=== PATIENT | female | born 1950 | race Caucasian/White ===

== ENCOUNTER → 2018-02-23 | Day surgery (SDC) | payer OTHER ==
[2018-02-09 09:44] VITALS: BMI 34.0
[~2018-02-23] VITALS: Ht 149.9 cm; Wt 76.4 kg
[~2018-02-23] MED LIST: ALBU18002 INH; ALBUTEROL HFA INHALER 8.5 GM INH ONE; ATOR-22 PO; ATROPINE SULFATE 0.1 MG/ML 5ML SYR IV PRN; BUPIVACAINE 0.5 % 5 MG/1 ML MPF 30ML VIAL ONE; CEFAZOLIN 2000MG IV PUSH 15 ML IV SCH; CHOL1000 PO; DEXAMETHASONE SOD INJ 4 MG/ML VIAL ONE; EpHEDrine SULFATE INJ 50 MG/ML AMP IV PRN; FENTANYL CITRATE INJ 50 MCG/1 ML 2 ML VIAL ONE; FLUT1AER14 INH; GLC/500 PO; HYDR-5688 PO; HYDR12.55 PO; HYDROCODONE/ACETAMIN 5/325MG TAB PO PRN; LACTATED RINGER'S 1000ML 1,000 ML IV SCH; LIDOCAINE HCL 2% 2 ML VIAL (20MG/ML) ONE; LISI-461 PO; MELO7.5T5 PO; MIDAZOLAM HCL 1 MG/ML 2ML VIAL ONE; MULT-506 PO; MoRPHine SULFATE 4 MG/ML 1 ML CARP\\VIAL IV PRN; ONDANSETRON INJ 2 MG/ML 2 ML VIAL IV PRN; ONDANSETRON INJ 2 MG/ML 2 ML VIAL ONE; PHENYLEPHRINE 100MCG/ML 5ML SYR ONE; PROPOFOL IV EMULSION 10 MG/ML 20 ML VIAL IV ONE
[2018-02-23 09:42] LABS: ALBUMIN 3.5 gm/dl (3.4-5.0); ALKALINE PHOSPHATASE 106 U/L (45-117); ALT/SGPT 18 U/L (12-78); AST/SGOT 14 U/L (15-37); TOTAL PROTEIN 7.1 gm/dl (6.4-8.2)
[2018-02-23 10:12] VITALS: BP 113/65; PULSE 88; TEMP 37.2; O2SAT 93; Ht 149.9 cm; Wt 76.4 kg
--- NOTE | 2018-02-23 10:23 | DIAGNOSTIC IMAGING REPORT ---
LYMPHOSCINTIGRAPHY CLINICAL HISTORY: Right breast cancer. PROCEDURE: Using standard sterile technique, 4 intradermal and one deep injection of 0.499 mCi of Lymphoseek was placed in the right breast. The patient tolerated the procedure well. There were no immediate complications. Imaging was acquired at 15 minutes and a right axillary node was marked for the surgeon. IMPRESSION: 1. Injection of 0.499 mCi of Lymphoseek in the right breast. 2. A right axillary node was marked for the surgeon. Electronically signed by: Walter Bird M.D. 02/23/2018 10:22 AM Dictated Date/Time: 02/23/2018 10:21 AM
[2018-02-23] MEDS: LACTATED RINGER'S 1000ML 1,000 ML IV SCH ×2 (10:28→14:12)
--- NOTE | 2018-02-23 11:53 | History & Physical Bridge Note ---
H&P Re-Evaluation Bridge Note: I have examined the patient, reviewed the History & Physical and in the interval since the performance of the History & Physical I have noted the following changes of clinical significance: Abdominal skin infection cleared, received clearance for surgery from PCP. wire placed, injection complete, films reviewed. No other changes noted
--- NOTE | 2018-02-23 13:39 | [facility] Post Operative Brief Note ---
Immediate Operative Summary Operative Date Feb 23, 2018. Pre-Operative Diagnosis Breast Cancer Right Post-Operative Diagnosis Breast Cancer Right Procedure(s) Performed Right Breast Lumpectomy with Needle Localization and Right Axillary [place] Lymph Node Biopsy Surgeon Entry Level Business Analyst Surgeon(s) KELSY Storey Estimated Blood Loss 12ml Findings Consistent with Post-Op Diagnosis 3 sentinel nodes. X-ray confirmed excision of surgical specimen Specimens A. [place] Lymph Nodes Right (Sent Fresh) B. Right Breast Tissue, Short suture superior, Long suture Lateral, Double Suture deep, (sent Fresh) C.Right Breast Tissue Inferior Medial Margine, Double suture Deep, Long suture lateral, Triple suture Anterior, Short suture superior margine. Drains None Anesthesia Type General Complication(s) none Disposition Accompanied Pt To Recover: no Disposition: Recovery Room / PACU
--- NOTE | 2018-02-23 13:44 | [facility] Operative Report ---
Operative Report Operative Date Feb 23, 2018. Pre-Operative Diagnosis Breast Cancer Right Post-Operative Diagnosis Same Procedure(s) Performed Right breast wire localized lumpectomy and right axillary sentinel lymph node biopsy Surgeon Bran Mixer Surgeon(s) KELSY Storey Estimated Blood Loss 12ml Findings 3 sentinel nodes identified and excised, largest count 210 ex vivo, axillary silent. Lumpectomy performed, mammography confirmed excision of specimen. Additional inferior medial margin taken. Specimens A. [place] Lymph Nodes Right (Sent Fresh) B. Right Breast Tissue, Short suture superior, Long suture Lateral, Double Suture deep, (sent Fresh) C.Right Breast Tissue Inferior Medial Margine, Double suture Deep, Long suture lateral, Triple suture Anterior, Short suture superior margine. Drains None Anesthesia GETA Complication(s) None Disposition Recovery Room / PACU Indications 67-year-old female with newly diagnosed right breast carcinoma, plan for right breast wire localized lumpectomy with right axillary sentinel lymph node biopsy. The risks of the procedure were discussed, all questions were answered , and the patient agreed to proceed with surgery as planned. Description of Procedure The patient had a localization wire placed in radiology prior to surgery. The films were reviewed for incisional planning. Patient had lymphoscintigraphy performed prior to the procedure and the axilla was examined with a gamma probe and confirmed uptake into the axilla. The patient was properly identified, consented, and taken to the operating room where she was placed in the supine position. General endotracheal anesthesia was induced. SCDs and a safety belt were placed. Preoperative antibiotics were administered. The patient's bilateral chest was prepped and draped in the standard sterile fashion. Surgical timeout was performed and all parties were in agreement that this was the correct patient and procedure to be performed and we continued as planned. An incision was made in the right axilla and a natural skin crease and deepened down to subcutaneous tissue with electrocautery. The gamma probe was used to localize the sentinel lymph node which read 190 in vivo, and 210 ex vivo. The axilla was explored and additional lymph nodes were taken admitted greater than 10% of the ex vivo count of the sentinel lymph node. A total of 2 lymph nodes were excised and sent fresh for permanent specimen. The axilla was reexamined with the gamma probe and was silent. The wound was packed and attention turned to the breast lesion. A transverse incision was made on the right and deepened down through the subcutaneous tissue with electrocautery. Flaps were raised in all directions. Wire was delivered into the incision. The breast mass was circumferentially dissected, excised down to the chest wall, and passed off the table as specimen. The specimen was oriented. A mammogram was performed of the specimen in radiology and confirmed excision of the wire, clip, and previously imaged abnormality. An additional inferior medial margin was excised down to the chest wall, oriented, and sent as specimen. The wound was irrigated and hemostasis was confirmed. The skin was closed with interrupted 3-0 Vicryl deep dermal sutures, followed by 4-0 Monocryl running subcuticular suture. Dermabond was placed over the wounds. The patient was extubated in the operating room and taken to the PACU where she recovered without apparent incident. All sponge, instrument and needle counts were correct at the conclusion of the procedure. The patient tolerated the procedure well. The physician's veterinarian assistant was present and scrubbed for the entirety of the case. He was essential in positioning the patient, prepping and draping, retraction and exposure, excision of the specimen and lymph nodes, closure of the incisions, and placement of the dressings. I attest to the content of the Intraoperative Record and any orders documented therein. Any exceptions are noted below.
--- NOTE | 2018-02-23 13:52 | Discharge Instructions ---
Discharge Instructions Date of Service Feb 23, 2018. Visit Reason for Visit: Right Breast Cancer W/Hosp Loc & Lymph Scan Discharge Discharge Diagnosis / Problem: right lumpectomy, lymph node biopsy Discharge Goals Goal(s): Diagnostic testing Activity Recommendations Activity Limitations: as noted below Shower/Bathe: no limitations Anesthesia . Post Anesthesia Instructions: If you have had General Anesthesia or IV Sedation: * Do not drive today. * Resume driving when surgeon permits. * Do not make important decisions or sign legal documents today. * Call surgeon for: 1. Temperature elevations greater than 101 degrees F. 2. Uncontrollable pain. 3. Excessive bleeding. 4. Persistent nausea and vomiting. 5. Medication intolerance (nausea, vomiting or rash). * For nausea and vomiting use only clear liquids such as: tea, soda, bouillon until nausea subsides, then gradually increase diet as tolerated. * If you have any concerns or questions, call your surgeon's office. If physician is unavailable and it is an emergency, call 911 or go to the nearest emergency room. . Instructions / Follow-Up Instructions / Follow-Up Dr. Guevara in 1-2 weeks as planned, call [phone] if you have any questions or need to schedule Diet Recommendations Recommended Home Diet: no limitations Procedures Procedures Performed: Right Breast Lumpectomy with Needle Localization and Right Axillary [place] Lymph Node Biopsy Pending Studies Studies pending at discharge: yes List of pending studies: pathology Medical Emergencies . Who to Call and When: Medical Emergencies: If at any time you feel your situation is an emergency, please call 911 immediately. . Non-Emergent Contact Non-Emergency issues call your: Surgeon Call Non-Emergent contact if: you have a fever, temperature is above 101.5, your pain is not controlled, wound has increased redness, you have any medication questions . . "Provider Documentation" section prepared by Julian Gleason. .
[2018-02-23] MEDS: FENTANYL CITRATE INJ 50 MCG/1 ML 2 ML VIAL IV PRN ×2 (14:03→14:09)
[2018-02-23 14:30] VITALS: BP 157/61; PULSE 88; TEMP 36.9; O2SAT 96
--- NOTE | 2018-02-23 14:39 | Anesthesiology Progress Note ---
Anesthesia Post Op Note Date & Time Feb 23, 2018 at 14:39 Vital Signs Pain Intensity: 2 Vital Signs Past 12 Hours Date Time Temp Pulse Resp B/P (MAP) Pulse Ox O2 Delivery O2 Flow Rate FiO2 02/23/18 14:20 81 16 131/65 94 Nasal Cannula 2 02/23/18 14:10 85 16 136/63 99 Oxymask 10 02/23/18 14:00 85 16 141/105 99 Oxymask 10 02/23/18 13:50 37.1 80 16 159/59 99 Oxymask 10 02/23/18 10:12 37.2 88 20 113/65 (81) 93 Room Air Notes Mental Status: alert / awake / arousable, participated in evaluation Pt Amnestic to Procedure: Yes Nausea / Vomiting: adequately controlled Pain: adequately controlled Airway Patency, RR, SpO2: stable & adequate BP & HR: stable & adequate Hydration State: stable & adequate Anesthetic Complications: no major complications apparent
[2018-02-23 15:00] VITALS: BP 152/72; PULSE 88; O2SAT 92
--- NOTE | 2018-02-24 07:37 | MAMMOGRAPHY REPORT ---
NEEDLE LOCALIZATION RIGHT BREAST: 02/23/2018 CLINICAL HISTORY: 67-year-old woman with recent biopsy-proven right breast carcinoma presents for pre operative wire localization prior to lumpectomy. PATIENT CONSENT: The risks of the procedure were explained to the patient and informed consent was ob tained. The patient denied eating or drinking anything this morning that would preclude anesthesia. She also denied allergy to lidocaine. A timeout was performed in the right breast was agreed as the site for preoperative localization. PROCEDURE DESCRIPTION: Prior to the right breast needle localization, ultrasound was performed throug hout the lateral left breast because upon review of the outside mammograms dated 01/06/2018, there is a n asymmetry in the lateral left breast. Although this could represent normal tissue, no other mammog shantanu prior to the 2018 screening exam are available to assess stability and therefore ultrasound was performed during this appointment. Targeted ultrasound was performed in the lateral left breast. In the 4:00 axis, 2 cm from the nipple , there is a gently lobulated parallel hypoechoic lesion that most likely represents a complicated cy st or cyst cluster, measuring 5.5 x 2.7 x 5.6 mm. No suspicious solid mass is identified. A short in terval follow-up left diagnostic tomosynthesis mammogram and repeat targeted ultrasound is recommende d to ensure stability in 6 months, which can likely be performed at the time of post treatment mammog aristeo in the right breast. Other prior imaging studies of the right breast were reviewed, including the core biopsy performed . The angular and irregular 9 mm hypoechoic solid mass in the 12:00 right breast, 4 cm from t he nipple is the intended target for localization. With the patient placed in the supine position, r ight arm extended, the skin of the right breast was cleansed with Betadine. 1% buffered Lidocaine wit hout epinephrine was administered as local anesthesia. A 5cm Crespo II needle and wire combination w as inserted into the breast. Optimal positioning was confirmed and the needle was removed, leaving th e wire in place, as per operating surgeon's preference. The entire procedure including approach and needle length were discussed with the operating surgeon sandra duke to surgery. The patient tolerated the procedure well and there was no immediate complication. She was sent to the operating room in satisfactory condition. The specimen radiograph demonstrates localizing wire, linear metallic biopsy marker clip and an area of distortion, compatible with successful preoperative localization and subsequent surgical excision. IMPRESSION: NEEDLE LOCALIZATION 1. Status post preoperative wire localization of biopsy-proven carcinoma in the 12:00 right breast. The imaged specimen includes the intended abnormalities. 2. There is an asymmetry in the lateral left breast, thought to correlate with a complicated cyst or cyst cluster in the 4:00 left breast on targeted ultrasound. However, a six-month follow-up left di agnostic tomosynthesis mammogram and repeat targeted ultrasound is recommended to ensure stability. This can likely be performed at the time of first follow-up after treatment in the right breast. The patient will receive notification of the final surgical pathology results from her referring phys romaien. Samanta Clarke M.D. ay/:02/23/2018 13:55:23 Specifications Writer: Mackenzie ALBA)Agustin), [facility]
--- NOTE | 2018-02-24 07:37 | MAMMOGRAPHY REPORT ---
SPECIMEN: 02/23/2018 CLINICAL HISTORY: 67-year-old woman presents for right breast needle localization. She has a history of recently diagnosed carcinoma in the 12:00 right breast, in which workup and biopsy was performed at an outside institution. Please refer to the report from right breast ultrasound-guided needle localization performed at the s [place] time for full detail. IMPRESSION: SPECIMEN Please refer to the report from right breast ultrasound-guided needle localization performed at the s [place] time for full detail. Samanta Clarke M.D. ay/:02/23/2018 08:20:22 Oliving Machine Operator: Mackenzie VARGAS (R)(Ashu), [facility]
--- NOTE | 2018-02-24 07:41 | MAMMOGRAPHY REPORT ---
UNILATERAL RIGHT DIGITAL DIAGNOSTIC MAMMOGRAM TOMOSYNTHESIS: 02/23/2018 CLINICAL HISTORY: 67-year-old woman presents with recently diagnosed right breast carcinoma, prior to needle localization. The workup and biopsy was performed at an outside institution. Please refer to the report from right breast ultrasound-guided needle localization performed at the s [place] time for full detail. IMPRESSION: Please refer to the report from right breast ultrasound-guided needle localization performed at the [facility] [place] time for full detail. Approximately 10% of breast cancers are not detected with mammography. A negative mammographic report should not delay biopsy if a clinically suggestive mass is present. Samanta Clarke M.D. ay/:02/23/2018 08:21:03 Chaperon: Mackenzie VARGAS(Tracey)(Ashu), [facility] BI-RADS Code: n/a
== END | disposition home or self-care (01) ==
LOC: C.ACU 07:39
PROVIDERS: ATTEND Surgery
DX: C50.911 Malignant neoplasm of unspecified site of right female breast (principal); Z17.0 Estrogen receptor positive status [ER+]; J44.9 Chronic obstructive pulmonary disease, unspecified; I10 Essential (primary) hypertension; E78.5 Hyperlipidemia, unspecified; F17.200 Nicotine dependence, unspecified, uncomplicated; M19.90 Unspecified osteoarthritis, unspecified site; Z80.3 Family history of malignant neoplasm of breast; Z83.3 Family history of diabetes mellitus; Z82.3 Family history of stroke

== ENCOUNTER → 2018-06-24 | Outpatient (CLI) | payer OTHER ==
[~2018-06-24] MED LIST changes: -ALBUTEROL HFA INHALER 8.5 GM INH ONE; +ANAS1TAB59 PO; -ATROPINE SULFATE 0.1 MG/ML 5ML SYR IV PRN; -BUPIVACAINE 0.5 % 5 MG/1 ML MPF 30ML VIAL ONE; +CALCTAB5 PO; -CEFAZOLIN 2000MG IV PUSH 15 ML IV SCH; -DEXAMETHASONE SOD INJ 4 MG/ML VIAL ONE; -EpHEDrine SULFATE INJ 50 MG/ML AMP IV PRN; -FENTANYL CITRATE INJ 50 MCG/1 ML 2 ML VIAL ONE; -HYDR-5688 PO; -HYDROCODONE/ACETAMIN 5/325MG TAB PO PRN; -LACTATED RINGER'S 1000ML 1,000 ML IV SCH; -LIDOCAINE HCL 2% 2 ML VIAL (20MG/ML) ONE; -MIDAZOLAM HCL 1 MG/ML 2ML VIAL ONE; -MoRPHine SULFATE 4 MG/ML 1 ML CARP\\VIAL IV PRN; -ONDANSETRON INJ 2 MG/ML 2 ML VIAL IV PRN; -ONDANSETRON INJ 2 MG/ML 2 ML VIAL ONE; -PHENYLEPHRINE 100MCG/ML 5ML SYR ONE; -PROPOFOL IV EMULSION 10 MG/ML 20 ML VIAL IV ONE
[2018-06-24 14:39] VITALS: BP 129/76; PULSE 78; TEMP 36.5; O2SAT 96
--- NOTE | 2018-06-24 15:45 | Radiation Oncology Follow-Up ---
Radiation Oncology Follow-Up Date of Visit Jun 24, 2018. Reason For Visit One-month follow-up and cancer survivorship care plan Radiation Completion Date 05/18/18 Diagnosis (1) Malignant neoplasm of central portion of right breast in female, estrogen receptor positive Status: Acute Onset Date: 01/30/2018 Histology Subtype: Invasive carcinoma Stage: l (A) Permanent Comment: Abnormal right breast mammogram Status post ultrasound-guided core needle biopsy January 30, 2018 Invasive carcinoma, no special type, grade 2 Estrogen receptor positive, progesterone receptor positive, HER-2/lissy negative Status post needle localization lumpectomy and axillary sentinel lymph node biopsy February 23, 2018 Stage pT1c pN1mi M0 Status post completion of radiation therapy May 18, 2018. She received 5130 centigrade utilizing hypo-fractionation. Last Edited By: Jennifer Hodges on May 29, 2018 08:58 History of Present Illness Ms. Guerrero has a family history of breast cancer. The patient's mother was diagnosed with breast cancer in her late 70s. She was treated with surgery and radiation and of causes unrelated to her breast cancer. The patient has been followed with screening mammograms. On January 15, 2018In early January patient underwent bilateral screening mammograms. This showed an abnormality in the right breast. An ultrasound-guided biopsy was recommended. 01/15/2018. Patient undergoes ultrasound of the right breast confirming abnormality. 01/30/2018. Patient undergoes unilateral mammogram and ultrasound-guided breast biopsy. This tissue confirmed an invasive carcinoma of no special type grade 2. The biopsy was at the 12 o'clock position 4 cm from the nipple. Estrogen receptors were strongly positive with 100% nuclear positivity, progesterone receptors are strongly positive with 100% nuclear positivity. HER-2/lissy" protein expression is negative. Accession #: [id number]. 02/05/2018. Patient is seen by Dr. Raphael Guevara we discussed surgical treatment options with the patient. He recommended breast conserving therapy and the patient agreed. 02/24/2018. Patient undergoes right breast partial mastectomy and sentinel node biopsy. FINAL DIAGNOSIS A. SENTINEL LYMPH NODES, RIGHT AXILLA, EXCISION: 1. MICROMETASTASIS OF ADENOCARCINOMA PRESENT IN ONE OF SEVEN LYMPH NODES (1/7) . SEE COMMENT. 2. NO EXTRANODAL EXTENSION IDENTIFIED. B. BREAST, RIGHT, NEEDLE LOCALIZED PARTIAL MASTECTOMY: 1. INFILTRATING DUCTAL CARCINOMA, INVASIVE MICROPAPILLARY TYPE, GRADE 3/3. SEE COMMENT 2. SYDNEY SCORE 8/9 (TUBULES=3, NUCLEI=3, MITOTIC RATE=2). 3 NO IN SITU COMPONENT IDENTIFIED. 4. LYMPH-VASCULAR SPACE INVASION PRESENT. 5. CHANGES CONSISTENT WITH PREVIOUS BIOPSY SITE. 6. FIBROCYSTIC CHANGES. 7. EXAMINED MARGINS FREE OF NEOPLASM. 8. SEE SYNOPTIC REPORT. C. BREAST, RIGHT, ADDITIONAL INFERIOR MEDIAL MARGIN: 1. BENIGN BREAST TISSUE WITH FIBROCYSTIC CHANGES AND ADENOSIS. 2. NEGATIVE FOR IN SITU AND INVASIVE CARCINOMA. COMMENT: One of the sentinel lymph nodes contained several foci of metastatic adenocarcinoma. These are evident on H&E stain, but nicely highlighted on the cytokeratin stain. The largest focus measures about 0.1 cm in greatest dimension. There are multiple other smaller foci present as well. I would interpret this as a micrometastasis. AJCC Stage: pT1cN(sn)1mi 03/17/2018. Patient scheduled to see Dr. Anna for discussion of the role of adjuvant systemic therapy at 11:10 AM. 03/17/2018. Patient is seen in radiation oncology to discuss the role of adjuvant radiation. 05/18/2018. Status post completion of radiation therapy. She received 5130 centigrade utilizing hypo-fractionation. Interim History She has been doing well over the past month. She is noted no changes to her breast. The skin irritation has steadily healed. She does have some dark discoloration to the skin and skin dryness. She is noted no masses or tenderness and no change of the axilla. She has been seen in medical oncology and has started antiestrogen therapy. She is tolerating this well. She denies hot flashes. She has had no increased joint discomforts. Allergies Coded Allergies: No Known Allergies (Unverified , 02/23/18) Home Medications Scheduled Anastrozole (Arimidex), 1 TAB PO DAILY Atorvastatin (Lipitor), 20 MG PO QPM Calcium Carbonate (Caltrate 600), 1 TAB PO BID Qmjvuodcrdk-Nxwxenqxvdmj-Snuye (Trelegy Ellipta 100-62.5-25 Mcg/INH), 1 PUFF INH QAM Hydrochlorothiazide (Hydrochlorothiazide), 1 TAB PO QAM Lisinopril (Zestril), 10 MG PO QAM Meloxicam (Mobic), 15 MG PO DAILY Metformin Hcl (Glucophage), 500 MG PO QPM Scheduled PRN Albuterol Sulfate (Proair Respiclick), 2 PUFFS INH Q4 PRN for SOB/Wheezing Review of Systems Gastrointestinal: Symptoms: WNL Oral: Symptoms: No Problems Respiratory: Symptoms: WNL Other Respiratory: Smokers Cough Urinary: Symptoms: WNL Skin: Symptoms: No Problems Breast: Right Upper Arm Measurement: 31.0 Right Mid Arm Measurement: 21.4 Right Wrist Measurement: 14.1 Left Upper Arm Measurement: 31.7 Left Mid Arm Measurement: 21.7 Left Wrist Measurement: 14.4 Arm Dominence: Right Patient Cosmetic Evaluation: Good Additional Notes: She completed a distress management report and answered "no" to all questions. Physical Exam Vital Signs Date Time Temp Pulse Resp B/P (MAP) Pulse Ox O2 Delivery O2 Flow Rate FiO2 06/24/18 14:39 36.5 78 16 129/76 96 ECOG Performance Status: 0 Fatigue: None General Appearance: no apparent distress Eyes: normal inspection, EOMI ENT: normal ENT inspection, hearing grossly normal Neck: no adenopathy, thyroid normal Respiratory/Chest: no respiratory distress, no accessory muscle use, + decreased breath sounds Breast: Breast examination reveals well-healed incisions of the right breasts. There is resolving hyperpigmentation and dryness of the skin. There are no masses or tenderness and no axillary adenopathy. There is dry skin noted at the nipple. Using the [place] score of cosmesis she has a fair outcome. The left breast showed no masses or tenderness and no axillary adenopathy. Cardiovascular: regular rate, rhythm, no gallop, no murmur Extremities: no pedal edema Neurologic/Psychiatric: no motor/sensory deficits, alert, normal mood/affect Skin: warm/dry Pain Management Patient Reports Pain: No Initial Pain Intensity: 0.0 Pain Management Plan She denies pain therefore requires no pain management. Laboratory Laboratory Results: not applicable Pathology Pathology Results: were reviewed, and pertinent findings noted in HPI Imaging Imaging Studies: were reviewed, and pertinent findings noted in HPI Assessment & Plan Plan: We discussed using [id number]-[id number] products to help with moisturizing of the skin. The hyperpigmentation will steadily improve and fade. Mammography was scheduled in [place]. She will have a right breast mammogram in 2 months and bilateral mammography in 8 months. These will be digital diagnostic mammograms. Today we completed a cancer survivorship care plan. She continues to smoke and has cut down. We discussed continuing to wean off of cigarettes. She was given information about the 1 800 quit line and low-dose CT for screening. In reviewing the cancer survivorship information it was stressed that secondary malignancies can occur in people who smoke and continue to smoke. She was given a copy of the survivorship document. We asked her to return to our office in 6 months. She may call if she has any questions or concerns in the interim. Total Time In Follow-Up I spent 20 minutes speaking to the patient in performing examination. I spent 20 minutes reviewing information, preparing the survivorship document, and completing this note. Copy To Raphael Guevara, ; Raciel Fuentes D.O.; Consuelo Bajwa PA-C
== END | disposition home or self-care (01) ==
LOC: C.ONC 14:30
PROVIDERS: ATTEND Physician Assistant Medical
DX: Z08 Encounter for follow-up examination after completed treatment for malignant neoplasm (principal); Z92.3 Personal history of irradiation; Z85.3 Personal history of malignant neoplasm of breast